=== PATIENT | male | born 1960 | race Caucasian/White ===

== ENCOUNTER 2024-01-18 08:26 | Day surgery (SDC) | payer OTHER ==
[2024-01-18] MEDS ORDERED: Propofol 200 MG/20 ML SDV IV ONE (08:27)
[2024-01-18] MEDS ORDERED: Lidocaine 2% 100 MG/5 ML Syringe IVPUSH ONE (08:27)
[2024-01-18] MEDS ORDERED: Glycopyrrolate 0.2 MG/ML 5 ML MDV IV ONE (08:27)
[2024-01-18] MEDS ORDERED: Midazolam 1 MG/ML 2 ML SDV IV ONE (08:27)
[2024-01-18] MEDS ORDERED: Sodium Chloride 0.9% 10 ML Syringe FLUSH PRN (08:30)
[2024-01-18] MEDS: Lactated Ringers 1,000 ML IV SCH (09:12)
[2024-01-18] MEDS: Simethicone Drops 40 MG/0.6 ML 30 ML Bottle ONE (10:18)
== END 2024-01-18 12:20 | disposition home or self-care (01) ==
LOC: FB.SDS 08:26
PROVIDERS: ATTEND Surgery
DX: K21.00 Gastro-esophageal reflux disease with esophagitis, without bleeding (principal); K31.89 Other diseases of stomach and duodenum; K25.9 Gastric ulcer, unspecified as acute or chronic, without hemorrhage or perforation; K29.70 Gastritis, unspecified, without bleeding; K64.1 Second degree hemorrhoids; K57.30 Diverticulosis of large intestine without perforation or abscess without bleeding; D50.9 Iron deficiency anemia, unspecified; K92.1 Melena; I10 Essential (primary) hypertension; K42.0 Umbilical hernia with obstruction, without gangrene; F41.9 Anxiety disorder, unspecified; F32.A Depression, unspecified; K40.90 Unilateral inguinal hernia, without obstruction or gangrene, not specified as recurrent; Z79.82 Long term (current) use of aspirin; Z79.899 Other long term (current) drug therapy; Z88.0 Allergy status to penicillin; Z88.8 Allergy status to other drugs, medicaments and biological substances
CPT/HCPCS: 00813; 43239; 45378; 88305; 88342; A9270; J2250; J2704; J3490; J7120